=== PATIENT | female | born 1965 | race African-American/Black ===

== ENCOUNTER 2024-11-22 14:59 | Emergency (ER) | payer SELFPAY ==
[~2024-11-22] VITALS: Ht 160 cm; Wt 65.0 kg
[2024-11-22 15:01] VITALS: TEMP 99; O2SAT 99
[2024-11-22 19:00] VITALS: BP 138/78; PULSE 90; RESP 18
[2024-11-22] MEDS: HYDROCODONE/ACETAMINOPHEN 5/325MG TABLET PO ONE (19:00)
[2024-11-22] MEDS ORDERED: CYCL10TA21 MT (19:37)
[2024-11-22] MEDS ORDERED: NAPR-1176 MT (19:37)
== END 2024-11-22 20:10 | disposition home or self-care (01) ==
LOC: ER 14:59
DX: S40.022A Contusion of left upper arm, initial encounter (principal); S00.83XA Contusion of other part of head, initial encounter; V89.2XXA Person injured in unspecified motor-vehicle accident, traffic, initial encounter; Y93.89 Activity, other specified; Y92.89 Other specified places as the place of occurrence of the external cause; Y99.8 Other external cause status
CPT/HCPCS: 71045; 73060; 73552; 99284